=== PATIENT | male | born 1970 | race Caucasian/White ===

== ENCOUNTER 2016-07-21 16:14 | Emergency (ER) | payer MEDICAID ==
[~2016-07-21] VITALS: Ht 180.3 cm; Wt 77.6 kg
[2016-07-21 16:46] VITALS: BP 124/76
== END 2016-07-21 18:33 | disposition home or self-care (01) ==
LOC: ED 18:32
DX: L03.113 Cellulitis of right upper limb (principal); R21 Rash and other nonspecific skin eruption
CPT/HCPCS: 99284